=== PATIENT | female | born 1955 | race Caucasian/White ===

== ENCOUNTER 2022-03-14 08:34 | Outpatient (CLI) | payer MEDICARE, MEDICAID | END 2022-03-14 08:35 | disposition home or self-care (01) | LOC: CSHMAMMO 08:34 | PROVIDERS: ATTEND Student in an Organized Health Care Education/Training Program | DX: Z12.31 Encounter for screening mammogram for malignant neoplasm of breast (principal); Z13.820 Encounter for screening for osteoporosis; E46 Unspecified protein-calorie malnutrition; N63.10 Unspecified lump in the right breast, unspecified quadrant; N64.89 Other specified disorders of breast; R60.0 Localized edema; M81.0 Age-related osteoporosis without current pathological fracture | CPT/HCPCS: 77063; 77067; 77080 ==